=== PATIENT | male | born 1960 | race Caucasian/White ===

== ENCOUNTER 2016-12-16 08:22 | Emergency (ER) | payer OTHER ==
[~2016-12-16] VITALS: Ht 175.3 cm; Wt 101.9 kg
[~2016-12-16 08:22] MED LIST: FLUO20SO3 PO; GABA300C3 PO; LISI-360 PO; TRAZ50TA4 PO; Z.0.COMMODE-3:1; Z.0.WALKERFRONT
[2016-12-16 08:29] VITALS: BP 117/84; PULSE 72; RESP 16; TEMP 98.1; O2SAT 96
[2016-12-16] MEDS ORDERED: TRAZ50TA12 PO (08:46)
[2016-12-16] MEDS ORDERED: LISI10TA3 PO (08:46)
--- NOTE | 2016-12-16 08:57 | PD ---
HPI Chief Complaint: Back/ Neck Pain or Injury Time Seen by Provider: 08:50 Travel History International Travel<30 days: No Contact w/Intl Traveler<30days: No Traveled to known affect area: No History of Present Illness HPI This patient had a fall 6 days ago. He slipped on some liquid and fell. He injured his left hip. He has been ambulatory since. Did not strike his head. He does complain of stiff neck that happened during the fall but there is no injury to head or neck. Severity is moderate. PFSH Past Medical History Arthritis: Yes Asthma: No Autoimmune Disease: No Anxiety: Yes Depression: Yes Heart Rhythm Problems: No Cancer: No Cardiovascular Problems: Yes High Cholesterol: No Chemotherapy: No Chest Pain: No Congestive Heart Failure: No COPD: No Cerebrovascular Accident: No Diabetes: No Endocrine: No GERD: No Genitourinary: No Hepatitis: No Hiatal Hernia: No Hypertension: Yes Immune Disorder: No Kidney Stones: No Musculoskeletal: Yes Neurologic: Yes Psychiatric: Yes Reproductive: No Respiratory: No Migraines: No Radiation Therapy: No Renal Failure: No Seizures: No Sickle Cell Disease: No Sleep Apnea: No Thyroid Disease: No Ulcer: No Influenza Vaccination: Yes Past Surgical History Abdominal Surgery: No AICD: No Arteriovenous Shunt: No Body Medical Devices: pins in the left elbow Cardiac Surgery: No Ear Surgery: No Endocrine Surgery: No Eye Surgery: No Genitourinary Surgery: No Gynecologic Surgery: No Insulin Pump: No Joint Replacement: Yes (BILATERAL TOTAL HIP, ORIF LUE) Neurologic Surgery: No Oral Surgery: No Pacemaker: No Thoracic Surgery: No Other Surgery: Yes (LEFT BICEP RE-ATTACHMENT, THORAT SURGERY) Social History Alcohol Use: Yes (OCCAS) Tobacco Use: No Substance Use: No Allergies-Medications (Allergen,Severity, Reaction): Coded Allergies: No Known Allergies (Unverified , 12/16/16) Reported Meds & Prescriptions Reported Meds & Active Scripts Active Reported Lisinopril 10 Mg Tab 10 Mg PO DAILY Trazodone (Trazodone HCl) 50 Mg Tab 75 Mg PO HS Review of Systems General / Constitutional: No: Fever HENT: No: Headaches Cardiovascular: No: Chest Pain or Discomfort Respiratory: No: Cough Physical Exam Narrative GASTROINTESTINAL: Abdomen soft, non-tender, nondistended. Positive bowel sounds. No hepato-splenomegaly, or palpable masses. No guarding. SKIN: Focused skin assessment reveals no rash or ulcers. Skin is warm and dry. Palpation shows no induration or nodules. Musculoskeletal: No long bone tenderness and good range of motion of hips No midline tenderness of neck or bruising or swelling NEUROLOGICAL: Awake and alert. Pupils are equal round and reactive. Motor and sensory grossly within normal limits. Five out of 5 muscle strength in all muscle groups. Normal speech. Data Data Last Documented VS Vital Signs Date Time Temp Pulse Resp B/P Pulse Ox O2 Delivery O2 Flow Rate FiO2 12/16/16 08:29 98.1 72 16 117/84 96 Orders Hip, Lat Only W Ap Pelvis (12/16/16 ) Spine, Cervical - Ltd (Ap&Lat) (12/16/16 ) MDM Medical Decision Making Medical Screen Exam Complete: Yes Emergency Medical Condition: Yes Medical Record Reviewed: Yes Differential Diagnosis Hip strain, contusion, fracture Narrative Course I have reviewed the patient's electronic medical record. I reviewed his pelvis x-ray which is normal I reviewed his left hip x-ray shows no fracture or dislocation I reviewed his cervical spine x-rays show some minor arthritic change in the lower cervical spine but no fracture Patient is stable for outpatient follow-up. He has soft tissue injury but no objective findings on x-rays Diagnosis Primary Impression: Strain of left hip Qualified Code: S76.012A - Strain of left hip, initial encounter Additional Impression: Cervical strain, acute Qualified Code: S16.1XXA - Cervical strain, acute, initial encounter Additional Instructions: The patient was advised to follow up with their physician and return if they worsen. Med/Other Pt SpecificInfo: Other Disposition: 01 DISCHARGE HOME Condition: Stable Chino Dinh MD Dec 16, 2016 08:57
--- NOTE | 2016-12-16 09:28 | RADRPT ---
EXAM DATE/TIME: 12/16/2016 09:17 [facility] COMPARISON: No previous studies available for comparison. INDICATIONS : Fall, left hip pain. MEDICAL HISTORY : None. SURGICAL HISTORY : bilateral hip replacement ENCOUNTER: Initial ACUITY: 1 week PAIN SCORE: 7/10 LOCATION: Left hip FINDINGS: A lateral view of the left hip with AP pelvis was obtained. No definite fractures, dislocations, lyt ic or sclerotic lesions are seen. There are bilateral hip prosthetic devices in place. The hardware i s grossly intact. There is good alignment SI joints and pubic symphysis. CONCLUSION: 1. No acute fracture or joint dislocation. 2. Good position and alignment of the bilateral hips. Jason Morris MD on December 16, 2016 at 9:25 Board Certified Radiologist. This report was verified electronically.
--- NOTE | 2016-12-16 09:31 | RADRPT ---
EXAM DATE/TIME: 12/16/2016 09:08 [facility] COMPARISON: No previous studies available for comparison. INDICATIONS : Fall, neck pain. MEDICAL HISTORY : None. SURGICAL HISTORY : None. ENCOUNTER: Initial ACUITY: 1 week PAIN SCORE: 5/10 LOCATION: neck FINDINGS: AP and lateral projections of the cervical spine were obtained. There is increased sclerosis involvin g the L5 vertebral body which appears degenerative in etiology. No significant prevertebral soft tiss ue swelling. Remaining vertebral body heights appear intact. The sagittal alignment is maintained. Th e dens is intact. There is a normal C1-2 relationship. Visualized lung apices are clear. There is deg enerative spondylosis of the lower cervical spine most prominently from C4-C6 with joint space narrow ing, endplate sclerosis, and osteophyte formation. CONCLUSION: 1. No acute fracture or subluxation. 2. Degenerative spondylosis of the lower cervical spine. Enrico Villanueva MD on December 16, 2016 at 9:26 Board Certified Radiologist. This report was verified electronically.
== END 2016-12-16 09:57 | disposition home or self-care (01) ==
LOC: PHED 08:22
DX: S76.012A Strain of muscle, fascia and tendon of left hip, initial encounter (principal); S16.1XXA Strain of muscle, fascia and tendon at neck level, initial encounter; I10 Essential (primary) hypertension
CPT/HCPCS: 72040; 73501; 99284

== ENCOUNTER 2017-05-11 07:22 | Inpatient (IN) | payer OTHER, MEDICARE ==
[~2017-05-11] VITALS: Ht 177.8 cm; Wt 91.3 kg
[~2017-05-11 07:22] MED LIST changes: -FLUO20SO3 PO; -GABA300C3 PO; -LISI-360 PO; +LOSA25TA PO; +TRAM50TA PO; +TRAZ50TA12 PO; -TRAZ50TA4 PO; -Z.0.COMMODE-3:1; -Z.0.WALKERFRONT
[2017-05-11] MEDS ORDERED: ceFAZolin 2 GM PREMIX 50 ML ONE (07:52)
[2017-05-11] MEDS ORDERED: GENTAMICIN SULFATE 80 MG/2 ML VIAL ONE (07:55)
[2017-05-11] MEDS ORDERED: BUPIVACAINE/EPINEPHRINE 0.25% PF 30 ML VIAL ONE (07:56)
[2017-05-11] MEDS ORDERED: METOPROLOL TARTRATE 25 MG TAB PO PRN ×2 (08:15)
[2017-05-11] MEDS ORDERED: CHLORHEXIDINE GLUCONATE 2 % 1 PACK (2 CLOTHS) TOPICAL PRN ×2 (08:15)
[2017-05-11] MEDS ORDERED: POVIDONE IODINE 5% (ANTISEPSIS KIT) 4 APPLICATIONS EACH NARE PRN ×2 (08:15)
[2017-05-11] MEDS ORDERED: SODIUM CHLORID 0.9% 500 ML IV PRN ×2 (08:15)
[2017-05-11] MEDS ORDERED: INSULIN HUMAN REGULAR 1,000 UNITS/10 ML VIAL SQ PRN (08:15)
[2017-05-11] MEDS ORDERED: LACTATED RINGER'S 1000 ML IV PRN ×2 (08:15)
[2017-05-11] MEDS ORDERED: VANCOMYCIN HCL 1000 MG VIAL ONE (08:17)
[2017-05-11] MEDS ORDERED: SODIUM CHLOR 0.9% 250 ML INJ 250 ML ONE (08:18)
[2017-05-11] MEDS ORDERED: VANCOMYCIN 1000 MG/NS 250 ML (for <70 kg) IV SCH ×2 (08:30)
[2017-05-11] MEDS ORDERED: ceFAZolin 2 GM PREMIX 50 ML IV SCH (08:30)
[2017-05-11] MEDS ORDERED: CHLORHEXIDINE GLUCONATE 4% SOLN 120 ML BTL TOPICAL SCH (08:30)
[2017-05-11] MEDS ORDERED: ACETAMINOPHEN 1000 MG/100 ML 100 ML IV ONE (10:26)
[2017-05-11] MEDS ORDERED: PROPOFOL 500 MG/50 ML INJ 100 ML ONE (10:26)
--- NOTE | 2017-05-11 11:46 | PD.OP ---
cc: Abebe Lainez MD; David Lainez MD Operative Report Date of Surgery: May 11, 2017 Preoperative Diagnosis: Osteophyte disc complex C5 6 and C6 7. Cervical radiculitis. Cervical spinal stenosis Postoperative Diagnosis: Same Procedure: Anterior cervical discectomy decompression and bilateral foraminotomies, C5 6. Anterocervical discectomy decompression and bilateral foraminotomy, C6 7. Left anterior iliac crest bone graft Anesthesia: Gen. Surgeon: David Lainez Screw Machine Repairer(s): DARLIN Monique Operation and Findings: EBL: 100 cc INDICATIONS: This patient is a 56-year-old male with significant neck pain and arm pain. He has advanced spinal stenosis at C5 6 and C6 7 associated with an osteophyte disc complex. He has a bilateral cervical radiculopathy at the same levels. He now presents for surgical treatment NOTE: Pilar Monique PA-C was present for the entire surgical procedure as my nurse first assist. In my medical opinion her skill and care was necessary for proper management of this patient PROCEDURE: The patient was brought to the operating room and anesthetized in the supine position. This patient was positioned supine on the radiolucent table. All pressure points were protected in the anterior cervical spine and iliac crest was scrubbed with alcohol followed by Hibiclens followed by ChloraPrep. A timeout was done and antibiotics were given within 1 hour time window. Lateral radiographic images were used identifying the proper level. A right anterior incision was made in line with skin creases. The platysma was opened in line with the incision. Deep dissection continued in the interval between the carotid sheath and the esophagus. The longus-coli muscles were lifted on both sides and retractors were positioned allowing good exposure. Lateral radiographic images were used to identify the proper level. [place] style interosseous pins were placed at C5 and C6 allowing exposure to that level. The microscope was rolled into the field. A total discectomy was accomplished and posterior osteophytes were removed. The posterior longitudinal ligament and annulus was taken down. Bilateral foraminotomies were accomplished. The endplates were squared up anticipating later bone grafting. A blunt probe could be placed out each foramen without evidence of nerve root compromise. The C5 pin was placed down to C7. An anterior exposure was accomplished. We performed a total discectomy with excision of the posterior annulus and posterior longitudinal ligament. Bilateral foraminotomies were accomplished. Osteophytes were removed. The endplates were squared up anticipating later bone grafting. A blunt probe could be placed out each foramen without evidence of nerve root compromise. The left iliac crest was approached. A small stab incision was made allowing percutaneous access to the anterior iliac crest. Multiple cores of cancellous bone were harvested and taken to the back table to be used for later bone grafting. The wound was irrigated anesthetized and closed with 4-0 Vicryl followed by Dermabond. The case was turned over to Dr. Abebe Lainez for fusion and instrumentation per his dictation. FINDINGS: There was evidence of severe central stenosis at both levels. There was bilateral foraminal stenosis worse on the left than on the right at the C5 6 level and moderate bilateral foraminal stenosis at the C6 7 level. After the decompression, there was no evidence of significant spinal cord or nerve root, mild. No complication was appreciated. NOTE: This surgery was performed in 2 parts. The first part was the neurosurgical decompression performed under the variable power stereo microscope by the undersigned in addition to the bone graft. The second portion of the surgery will be performed by the orthopedic spine component by co -surgeon, Dr. Abebe Lainez for the anterior fusion with interbody cage and anterior plate. The skill of 2 surgeons was necessary to perform distinct separate procedural services as dictated above and dictated in the following operative note by Dr. Abebe Lainez. David Lainez MD May 11, 2017 11:46
[2017-05-11] MEDS ORDERED: PROPOFOL 500 MG/50 ML INJ 50 ML ONE (12:05)
[2017-05-11] MEDS ORDERED: PROMETHAZINE INJ 25 MG/ML VIAL IM PRN (13:00)
[2017-05-11] MEDS ORDERED: DO NOT ADM ANY ANTICOAGULANT DRUGS PRN (13:00)
[2017-05-11] MEDS ORDERED: traMADol HCL 50 MG TAB PO PRN (13:30)
[2017-05-11] MEDS ORDERED: ALUMINUM/MAGNESIUM/SIMETH 30 ML CUP PO PRN (13:30)
[2017-05-11] MEDS ORDERED: Post-op Orders (for Pharmacy) MISC XX ONE (13:30)
[2017-05-11] MEDS ORDERED: MORPHINE SULFATE 4 MG/ML INJ IV PUSH PRN (13:30)
[2017-05-11] MEDS ORDERED: SUGAMMADEX SODIUM 200 MG/2 ML VIAL IV PUSH ONE ×4 (13:31→14:00)
[2017-05-11] MEDS ORDERED: *morphine SULFATE 8 MG/ML PERIprocedure ONLY ONE ×3 (13:40→13:57)
--- NOTE | 2017-05-11 13:40 | MP ---
cc: SAJAN HAHN,BRAULIO Flannery M.D. DATE OF OPERATION May 11, [id number]/2017 PREOPERATIVE DIAGNOSIS 1. C5-6 osteophyte disk complex, spinal stenosis, foraminal stenosis. 2. C6-7 osteophyte disk complex,spinal stenosis, foraminal stenosis. 3. Bilateral cervical radiculitis with a bilateral upper extremity weakness. POSTOPERATIVE DIAGNOSIS 1. C5-6 osteophyte disk complex, spinal stenosis, foraminal stenosis. 2. C6-7 osteophyte disk complex, spinal stenosis, foraminal stenosis. 3. Bilateral cervical radiculitis with a bilateral upper extremity weakness. PROCEDURE C5-6, C6-7 anterior interbody fusion; C5-6, C6-7 anterior interbody fusion; C5-6, C6-7 Spinet ACC anterior cervical cage; C5-C7 spine [place] anterior spinal instrumentation SURGEON Albin Lainez MD DIVISION HEAD Ellyn Lam PA-C ESTIMATED BLOOD LOSS 75 cc for the entire case. SPECIMENS None COMPLICATIONS None ANESTHESIA General DRAINS None CONDITION Stable PLAN OF ACTIVITY Per orders. Dr. David Lainez and myself were co-surgeons. Dr. David Lainez performed the neuro decompressive portion of the procedure using operative microscope performed a C5-6, C6-7 anterior cervical diskectomy and anterior decompression, and bilateral foraminotomies. Also performed a left anterior iliac crest bone grafting. I was not present for his portion of the procedure. As a co-surgeon, I performed the spinal fusion and stabilization portion of the procedure which was well-described in my operative note. My medication assistant Ellyn Lam PA-C, was present for my portion of the entire case. She was medically necessary for the entire case because of the complexity of the case and to facilitate the performance of the procedure. The ROD MILL TENDER at the back table was not a skill set for this case to manipulate the instruments e.g. the multiple different types of soft tissue retractors, trial implants and permanent implants. The patient brought into the operating room and had satisfactory general anesthesia by the Department of Anesthesia. Dr. David Lainez performed a right transverse anterior cervical spine exposure performed a C5-6 and C6-7 anterior cervical diskectomy and anterior decompression using the operative microscope and left iliac crest bone grafting. The endplates at C6-7 were prepared for fusion. The hyaline cartilage endplates were removed using angled curettes and burs. A 6-10 x 12 ACC cage was placed in the interspace in a satisfactory manner. The second 10 x 12 ACC cage placed in the interspace. Anterior iliac crest bone graft was used under fluoroscopic guidance for interbody fusion. The C5-6 interspace was prepared for fusion. The hyaline cartilage endplate using angled curettes and burs. The 6-10 x 12 ACC cage placed in the interspace. Anterior iliac crest bone graft was placed under fluoroscopic guidance for interbody fusion. The patient had moderate size anterior osteophytes. These were removed using multiple different types of rongeurs and burs. A 43 mm plate was used for anterior spinal instrumentation. It was contoured for the patient's normal cervical lordosis. Two tacks were used to keep the plate in appropriate position. This was confirmed to be in appropriate position under fluoroscopy in the AP and lateral plane. Two screws were used in the vertebral body at C5, C6 and C7. Each of the screws were drilled. Each screw was 14 mm in length, 4.0 mm in outer diameter fixed angle screws. Each of the screws were inserted and each screw head was appropriately locked to the plate. Intraoperative fluoroscopy in AP and lateral plane confirmed satisfactory position of the bone graft at C5, C6-7 and ACC cages at C5-6 and satisfactory anterior spinal instrumentation with plate and screws at C5-C7. The wound was irrigated with copious amounts of sterile saline antibiotic solution. Surgiflo was used to make sure that there was no and postoperative bleeding. The wound itself was dry. The wound was closed in multiple layers using 3-0 Vicryl suture. The skin was approximated with a running subcuticular 4-0 Vicryl and Dermabond placed on the skin incision. A sterile dressing was applied. A [place] cervical orthosis was applied. The patient tolerated the procedure well and arrived in the recovery room in stable and satisfactory condition. MD MARICEL Noland/TRISTAN /12:45 PM /1:10 PM
[2017-05-11] MEDS: LACTATED RINGER'S 1000 ML INJ 1,000 ML IV SCH (13:45)
--- NOTE | 2017-05-11 13:54 | RADRPT ---
EXAM DATE/TIME: 05/11/2017 12:24 [facility] COMPARISON: SP[facility] (AP&LAT), December 16, 2016, 9:08. INDICATIONS : C5-C6,C6-C7 fusion, neck pain. MEDICAL HISTORY : None. SURGICAL HISTORY : None. ENCOUNTER: Initial ACUITY: 1 day PAIN SCORE: Non-responsive. LOCATION: cervial spine FINDINGS: AP and lateral cone-down views of the cervical spine were obtained intraoperatively using a matrix ca alex. This demonstrates that the patient is status post anterior cervical fusion at the C5-C7 level w ith intact screw plate fixation device. Bone grafting material and markers are noted in the 2 intersp aces. An endotracheal tube and temperature probe are noted. CONCLUSION: That is post anterior cervical fusion at the C5-C7 level. Colton Barillas MD on May 11, 2017 at 13:51 Board Certified Radiologist. This report was verified electronically.
[2017-05-11] MEDS ORDERED: PILL SPLITTER OTHER PRN (14:00)
[2017-05-11] MEDS ORDERED: ONDANSETRON HCL 4 MG/2 ML VIAL IV PUSH PRN (15:30)
[2017-05-11 16:00] VITALS: BP 140/81; PULSE 63; RESP 15; TEMP 97.5; O2SAT 98
[2017-05-11] MEDS: traMADol HCL 50 MG TAB PO PRN ×2 (16:19→22:32)
[2017-05-11 20:00] VITALS: BP 141/97; PULSE 80; RESP 18; TEMP 96.2; O2SAT 96
[2017-05-11] MEDS ORDERED: ZOLPIDEM TARTRATE 5 MG TAB PO PRN (21:00)
[2017-05-11] MEDS ORDERED: traZODone HCL 50 MG TAB PO SCH (21:00)
[2017-05-11 21:36] VITALS: O2SAT 96
[2017-05-12] VITALS: BP 130/84; PULSE 72; RESP 18; TEMP 97.4; O2SAT 96
[2017-05-12] MEDS: LACTATED RINGER'S 1000 ML INJ 1,000 ML IV SCH (02:00)
[2017-05-12 04:00] VITALS: BP 139/85; PULSE 70; RESP 18; TEMP 97.7; O2SAT 96
[2017-05-12] MEDS: traMADol HCL 50 MG TAB PO PRN (06:01)
--- NOTE | 2017-05-12 06:59 | PD.ORT.PN ---
Subjective Subjective Remarks pt has post operative neck pain no dysphagia, pre-operative arm pain has resolved Objective Vitals Vital Signs Date Time Temp Pulse Resp B/P (MAP) Pulse Ox O2 Delivery O2 Flow Rate FiO2 05/12/17 04:00 97.7 70 18 139/85 (103) 96 05/12/17 00:00 97.4 72 18 130/84 (99) 96 05/11/17 21:36 96 21 05/11/17 20:00 96.2 80 18 141/97 (112) 96 05/11/17 16:00 97.5 63 15 140/81 (100) 98 05/11/17 15:00 98.2 55 13 107/57 (74) 98 Room Air 05/11/17 14:30 53 13 108/62 (77) 98 Room Air 05/11/17 14:15 50 13 115/66 (82) 98 Nasal Cannula 2 05/11/17 14:00 56 13 118/68 (85) 99 Nasal Cannula 2 05/11/17 13:45 56 13 114/66 (82) 100 Nasal Cannula 2 05/11/17 13:30 65 13 123/73 (90) 99 Nasal Cannula 2 05/11/17 13:15 78 20 118/74 (89) 100 Nasal Cannula 2 05/11/17 13:02 98.8 91 17 131/72 (91) 100 Nasal Cannula 2 05/11/17 08:05 98.0 72 20 144/84 (104) 98 I/O 05/11/17 05/11/17 05/11/17 05/12/17 05/12/17 05/12/17 07:00 15:00 23:00 07:00 15:00 23:00 Intake Total 2190 ml 553 ml 360 ml Output Total 1075 ml Balance 1115 ml 553 ml 360 ml Intake Oral 100 ml 360 ml 360 ml IV Total 2090 ml 193 ml Output Estimated Blood Loss 75 ml Other 1000 ml # Voids 0 3 3 # Bowel Movements 0 0 Objective Remarks seen by Dr. Abebe Lainez Baker collar in place dressing dry and intact Motor is +5/5 to UE Assessment & Plan Assessment and Plan POD # 1 s/p C5-7 ACDF Baker collar x 4 weeks Tramadol rx in chart Discharge home today, orthopedically stable Ellyn Lam May 12, 2017 06:59
[2017-05-12 08:00] VITALS: BP 150/90; PULSE 80; RESP 16; TEMP 97.7; O2SAT 95
[2017-05-12 08:45] VITALS: O2SAT 95
[2017-05-12] MEDS ORDERED: MULTIVITAMINS/MINERALS THERAPEUTIC TAB PO SCH (09:00)
[2017-05-12] MEDS ORDERED: LOSARTAN 25 MG TAB PO SCH (09:00)
== END 2017-05-12 10:55 | disposition home or self-care (01) | DRG 460 ==
LOC: HSDI 07:22 → INTOOBSV 07:22 → OBSVTOIN 12:57 → N06A 15:26
PROVIDERS: ADMIT Orthopaedic Surgery Orthopaedic Surgery of the Spine; ATTEND Orthopaedic Surgery Orthopaedic Surgery of the Spine
PROC: 0RB30ZZ Excision of Cervical Vertebral Disc, Open Approach (ICD-10-PCS; 2017-05-11)
PROC: 0QB30ZZ Excision of Left Pelvic Bone, Open Approach (ICD-10-PCS; 2017-05-11)
PROC: 0SG10A0 Fusion of 2 or more Lumbar Vertebral Joints with Interbody Fusion Device, Anterior Approach, Anterior Column, Open Approach (ICD-10-PCS; principal; 2017-05-11 09:18)
DX: M48.02 Spinal stenosis, cervical region (principal); M25.78 Osteophyte, vertebrae; R53.1 Weakness; M54.12 Radiculopathy, cervical region
CPT/HCPCS: 72040; 76000; 86850; 86900; 86901; 94150; C1713; J0131; J0690; J1580; J2270; J3370; J7050; J7120